=== PATIENT | female | born 1990 | race Two or more races ===

== ENCOUNTER 2025-01-25 13:08 | Emergency (ER) | payer OTHER ==
[~2025-01-25] VITALS: Ht 147.3 cm; Wt 89.8 kg
[2025-01-25 13:16] VITALS: BP 106/73; O2SAT 97
== END 2025-01-25 14:33 | disposition home or self-care (01) ==
LOC: ER 13:11
DX: L60.0 Ingrowing nail (principal); Z91.038 Other insect allergy status